=== PATIENT | female | born 1970 | race American Indian/Alaskan Native ===

== ENCOUNTER 2021-11-24 17:07 | Emergency (ER) | payer OTHER ==
[2021-11-24 21:52] LABS: Basophils # (Auto) 0.1 K/mm3 (0.0-0.1); Basophils % (Auto) 1.1 % (0.0-1.8); Eosinophils # (Auto) 0.1 K/mm3 (0.0-0.4); Eosinophils % (Auto) 1.6 % (0.0-4.3); Hematocrit 36.9 % (30.3-42.9); Hemoglobin 12.8 gm/dl (10.1-14.3); Lymphocytes # (Auto) 1.4 K/mm3 (1.2-5.4); Lymphocytes % (Auto) 23.8 % (13.4-35.0); Mean Corpuscular HGB Conc 35 % (30-34); Mean Corpuscular Volume 88 fl (79-97); Monocytes # (Auto) 0.5 K/mm3 (0.0-0.8); Monocytes % (Auto) 8.4 % (0.0-7.3); Red Blood Count 4.18 M/mm3 (3.65-5.03); Red Cell Distribution Width 12.7 % (13.2-15.2)
[2021-11-24 22:01] LABS: Platelet Count 179 K/mm3 (140-440)
--- NOTE | 2021-11-24 22:01 | Cat Scan Report ---
CT ABDOMEN AND PELVIS WITHOUT CONTRAST INDICATION / CLINICAL INFORMATION: bilateral flank pain. TECHNIQUE: Axial CT images were obtained through the abdomen and pelvis without IV contrast. All CT scans at this location are performed using CT dose reduction for ALARA by means of automated exposure control. COMPARISON: None available. FINDINGS: LOWER CHEST: No significant abnormality LIVER: No significant abnormality GALLBLADDER/BILIARY TREE: No significant abnormality PANCREAS: No significant abnormality SPLEEN: No significant abnormality ADRENALS: No significant abnormality RIGHT KIDNEY / URETER: No significant abnormality LEFT KIDNEY / URETER: No significant abnormality URINARY BLADDER: No significant abnormality REPRODUCTIVE ORGANS: Enlarged lobulated uterus with partially calcified fibroids. STOMACH / BOWEL: Scattered nondilated fluid-filled small bowel. No evidence of small bowel obstructio n. Colon is unremarkable. The appendix is normal in caliber. LYMPH NODES: No significant adenopathy. VASCULATURE: No significant abnormality. OTHER: No free air, free fluid, or focal fluid collection is identified. Small umbilical hernia conta ins noninflamed fat. SKELETAL SYSTEM: No acute osseous findings. IMPRESSION: 1. Scattered nondilated fluid-filled small bowel, nonspecific but may reflect mild enteritis. 2. No other acute findings. No urolithiasis or hydronephrosis. 3. Other chronic and incidental findings as above. Signer Name: Manpreet Chan MD Signed: 11/24/2021 9:57 PM Workstation Name: [id number]
[2021-11-24 22:04] VITALS: BP 132/87
[2021-11-24 22:16] LABS: Alanine Aminotransferase 9 units/L (7-56); Albumin 4.5 g/dL (3.9-5); Blood Urea Nitrogen 9 mg/dL (7-17); Hemolysis Index 3
[2021-11-24 22:27] LABS: Bilirubin,Urine NEG (Negative); Blood,Urine SM (Negative); Color,Urine Yellow (Yellow); Mucus,Urine 2+ /HPF; Protein,Urine <15 mg/dL mg/dL (Negative); Urobilinogen,Urine < 2.0 mg/dL (<2.0)
[2021-11-24 22:38] LABS: BUN/Creatinine Ratio 15
--- NOTE | 2021-11-24 22:56 | Emergency Department Report ---
ED Abdominal Pain HPI - General Chief Complaint: Abdominal Pain Stated Complaint: STOMACH AND BACK PAIN Source: patient Mode of arrival: Ambulatory Limitations: No Limitations - History of Present Illness Initial Comments: Patient is a 51-year-old -[place] female with no past medical history presents to the ED with complaint of acute onset persistent bilateral flank pain that radiates to the lower abdomen diffusely and low back with nausea for the last 5 days. Patient states that the pain has been constant and persistent. Patient denies dysuria, urinary frequency and urgency, chest pain, shortness of breath, vomiting, fever, chills, diarrhea, traumatic injury, heavy lifting, numbness and tingling or weakness of lower extremities bilaterally. MD Complaint: abdominal pain (Bilateral flank pain radiating to the lower abdominal), flank pain (Bilateral), other (Low back pain) -: Sudden, days(s) (5 days) Location: LLQ, RLQ, suprapubic, bilateral flank Radiation: LLQ, RLQ, suprapubic, bilateral flank, back (Low back) Migration to: no migration Severity scale (0 -10): 6 Quality: aching Improves With: nothing Worsens With: movement Associated Symptoms: denies other symptoms, nausea. denies: vomiting, diarrhea, chills, constipation, hematemesis, melena, hematuria, anorexia - Related Data Previous Rx's Medication Instructions Recorded Last Taken Type Baclofen 20 mg PO Q12H PRN #24 tab 11/24/21 Unknown Rx Naproxen 500 mg PO Q12H PRN #24 tab 11/24/21 Unknown Rx Allergies Allergy/AdvReac Type Severity Reaction Status Date / Time No Known Allergies Allergy Verified 11/24/21 22:21 ED Review of Systems ROS: Stated complaint: STOMACH AND BACK PAIN Other details as noted in HPI Constitutional: denies: chills, fever Eyes: denies: eye pain, eye discharge, vision change ENT: denies: ear pain, throat pain Respiratory: denies: cough, shortness of breath, wheezing Cardiovascular: denies: chest pain, palpitations Endocrine: no symptoms reported Gastrointestinal: abdominal pain (Bilateral flank pain and abdominal pain), nausea. denies: vomiting, diarrhea, constipation, hematemesis Genitourinary: denies: urgency, dysuria, discharge Musculoskeletal: back pain (Low back pain). denies: joint swelling, arthralgia Skin: denies: rash, lesions Neurological: denies: headache, weakness, paresthesias Psychiatric: denies: anxiety, depression Hematological/Lymphatic: denies: easy bleeding, easy bruising ED Past Medical Hx - Social History Smoking Status: Never Smoker Substance Use Type: None - Medications Home Medications: Home Medications Medication Instructions Recorded Confirmed Last Taken Type Baclofen 20 mg PO Q12H PRN #24 tab 11/24/21 Unknown Rx Naproxen 500 mg PO Q12H PRN #24 tab 11/24/21 Unknown Rx ED Physical Exam - General Limitations: No Limitations General appearance: alert, in no apparent distress - Head Head exam: Present: atraumatic, normocephalic, normal inspection - Eye Eye exam: Present: normal appearance, PERRL, EOMI Pupils: Present: normal accommodation - ENT ENT exam: Present: normal exam, normal orophraynx, mucous membranes moist, TM's normal bilaterally, normal external ear exam - Neck Neck exam: Present: normal inspection, full ROM. Absent: tenderness - Respiratory Respiratory exam: Present: normal lung sounds bilaterally. Absent: respiratory distress, wheezes, rales, chest wall tenderness, accessory muscle use, decreased breath sounds - Cardiovascular Cardiovascular Exam: Present: regular rate, normal rhythm, normal heart sounds. Absent: systolic murmur, diastolic murmur, rubs, gallop - GI/Abdominal GI/Abdominal exam: Present: soft, tenderness (Palpable bilateral flank and lower abdominal tenderness), normal bowel sounds. Absent: guarding, rebound, hyperactive bowel sounds, hypoactive bowel sounds, mass - Extremities Exam Extremities exam: Present: normal inspection, full ROM, normal capillary refill - Back Exam Back exam: Present: normal inspection, full ROM, tenderness (Palpable l umbosacral paraspinal musculoskeletal tenderness), muscle spasm, paraspinal tenderness - Neurological Exam Neurological exam: Present: alert, oriented X3, CN II-XII intact, normal gait, reflexes normal - Psychiatric Psychiatric exam: Present: normal affect, normal mood - Skin Skin exam: Present: warm, dry, intact, normal color. Absent: rash ED Course Vital Signs 11/24/21 11/24/21 19:33 22:03 Temperature 99.4 F 98.4 F Pulse Rate 83 84 Respiratory 16 18 Rate Blood Pressure 122/81 132/87 [Left] O2 Sat by Pulse 99 100 Oximetry ED Medical Decision Making - Lab Data Result diagrams: 11/24/21 21:38 11/24/21 21:38 - Radiology Data Radiology results: report reviewed, image reviewed [facility] [address] [place] [address] Cat Scan Report Signed Patient: MITCHELL MURO MR#: [id number] : 1970 Acct:[id number] Age/Sex: 51 / F ADM Date: 11/24/21 Loc: ED Attending Dr: Ordering Physician: LONG HOLLY Date of Service: 11/24/21 Procedure(s): CT abdomen pelvis wo con Accession Number(s): [id number] cc: LONG HOLLY CT ABDOMEN AND PELVIS WITHOUT CONTRAST INDICATION / CLINICAL INFORMATION: bilateral flank pain. TECHNIQUE: Axial CT images were obtained through the abdomen and pelvis without IV contrast. All CT scans at this location are performed using CT dose reduction for ALARA by means of automated exposure control. COMPARISON: None available. FINDINGS: LOWER CHEST: No significant abnormality LIVER: No significant abnormality GALLBLADDER/BILIARY TREE: No significant abnormality PANCREAS: No significant abnormality SPLEEN: No significant abnormality ADRENALS: No significant abnormality RIGHT KIDNEY / URETER: No significant abnormality LEFT KIDNEY / URETER: No significant abnormality URINARY BLADDER: No significant abnormality REPRODUCTIVE ORGANS: Enlarged lobulated uterus with partially calcified fibroids. STOMACH / BOWEL: Scattered nondilated fluid-filled small bowel. No evidence of small bowel obstruction. Colon is unremarkable. The appendix is normal in caliber. LYMPH NODES: No significant adenopathy. VASCULATURE: No significant abnormality. OTHER: No free air, free fluid, or focal fluid collection is identified. Small umbilical hernia contains noninflamed fat. SKELETAL SYSTEM: No acute osseous findings. IMPRESSION: 1. Scattered nondilated fluid-filled small bowel, nonspecific but may reflect mild enteritis. 2. No other acute findings. No urolithiasis or hydronephrosis. 3. Other chronic and incidental findings as above. Signer Name: Marie Sellers MD Signed: 11/24/2021 9:57 PM Workstation Name: [id number] Transcribed By: DAMIEN Dictated By: MARIE SELLERS MD Electronically Authenticated By: MARIE SELLERS MD Signed Date/Time: 11/24/212156 DD/ 52 TD/TT: Print - Medical Decision Making This is a 51-year-old -[place] female with no past medical history presents to the ED with complaint of acute onset persistent bilateral flank pain that radiates to the lower abdomen diffusely and low back with nausea for the last 5 days. Patient states that the pain has been constant and persistent. In the ED, patient is alert and oriented x3 and is not in any distress. Abdomen pelvis CT scan without contrast showed no acute abnormalities, no hydronephrosis or kidney stones. All lab test results were reviewed and are all nonactionable. Patient was therefore discharged home on medications and advised to follow-up with her primary care physician in 7 to 10 days for reevaluation. Patient was advised to return to the ED immediately if symptoms get worse. - Differential Diagnosis Kidney stone; colitis; UTI; pyelonephritis; constipation:; Muscle spasm Critical care attestation.: If time is entered above; I have spent that time in minutes in the direct care of this critically ill patient, excluding procedure time. ED Disposition Clinical Impression: Bilateral flank pain, Spasm of muscle of lower back Acute low back pain without sciatica Qualifiers: Back pain laterality: bilateral Qualified Code(s): M54.50 - Low back pain, unspecified Disposition: HOME / SELF CARE / HOMELESS Is pt being admited?: No Does the pt Need Aspirin: No Condition: Stable Instructions: Abdominal Pain (ED), Muscle Cramps and Spasms, [id number], Flank Pain, Adult, [id number], Abdominal Pain, Adult, [id number] Additional Instructions: All lab test results were reviewed and are all nonactionable. Abdomen pelvis CT scan without contrast showed no acute abnormalities, no evidence of kidney stones or any kidney abnormalities. Therefore take medication with food, drink plenty of fluids, follow-up with your primary care physician in 7 to 10 days for reevaluation. Return to the ED immediately if symptoms get worse. Prescriptions: Baclofen 20 mg PO Q12H PRN #24 tab PRN Reason: Muscle Spasm Naproxen 500 mg PO Q12H PRN #24 tab PRN Reason: Pain , Severe (7-10) Referrals: [facility] [Provider Group] - 7-10 days Forms: Work/School Release Form(ED) Time of Disposition: 22:56 Print Language: DIVEHI
== END 2021-11-24 23:21 | disposition home or self-care (01) ==
LOC: ED 17:07
DX: R10.13 Epigastric pain (principal); M54.40 Lumbago with sciatica, unspecified side
CPT/HCPCS: 36415; 74176; 80053; 81001; 85025; 99284